=== PATIENT | male | born 1940 | race Caucasian/White ===

== ENCOUNTER 2020-01-07 10:35 | Outpatient (RCR) | payer MEDICARE, OTHER | END 2020-03-16 | disposition home or self-care (01) | LOC: ONC 10:35 | PROVIDERS: ATTEND Internal Medicine Hematology & Oncology | DX: Z51.0 Encounter for antineoplastic radiation therapy (principal) | CPT/HCPCS: 77290; 77295; 77300; 77334; 77336; 77417; 77470; 99204; 99214 ==